=== PATIENT | female | born 1960 | race Caucasian/White ===

== ENCOUNTER → 2016-12-22 | Outpatient (CLI) | payer BC ==
[~2016-12-22] MED LIST: AMPH30TA3 PO; ATOR40TA64 PO; FLUT9.9S EA NOSTRIL; LEVO125T11 PO; OMEP40CA11 PO; QUET200T PO; VENL150C2 PO
--- NOTE | 2016-12-22 09:31 | DI ---
Indication: ITS.REASON: R74.8 Abnormal levels of other serum enzymes PROCEDURE: US LIVER (HEPATIC): Encounter: Initial Comparison: CT abdomen and pelvis dated December 29, 2015 Technique: Grayscale and color Doppler sonographic imaging of the right upper quadrant of the abdomen was performed. Findings: Hepatic parenchyma is heterogeneous without evidence for focal mass. The gallbladder is surgically absent. Both the intra and extrahepatic biliary system are of normal caliber with the common duct measuring 7 mm in dimension. Visualized portions of the head and body of the pancreas are unremarkable. The right kidney is present without collecting system dilatation. The right kidney measures 9.9 cm in length. Impression: Mildly heterogeneous liver could be due to cirrhosis. .
== END ==
LOC: IMA 07:17
PROVIDERS: ATTEND Family Medicine
DX: R74.8 Abnormal levels of other serum enzymes (principal); R93.2 Abnormal findings on diagnostic imaging of liver and biliary tract